=== PATIENT | male | born 1950 | race Two or more races ===

== ENCOUNTER 2023-06-28 16:06 | Emergency (ER) | payer OTHER ==
[~2023-06-28] VITALS: Ht 175.3 cm; Wt 113.4 kg
[2023-06-28] MEDS ORDERED: UROXATRAL10 MG (17:10)
[2023-06-28] MEDS ORDERED: AMLODIPINE-OLM1 EAC2 (17:10)
[2023-06-28] MEDS ORDERED: PRECOSE50 MG (17:10)
[2023-06-28] MEDS ORDERED: MONTELUKAST SODI4 M1 (17:11)
[2023-06-28] MEDS ORDERED: STIOLTO RESPIMAT4 GM (17:11)
[2023-06-28] MEDS ORDERED: XOPENEX HFA15 GM (17:11)
[2023-06-28] MEDS ORDERED: FINASTERIDE1 MG (17:12)
[2023-06-28] MEDS ORDERED: PEPCID AC10 MG (17:12)
[2023-06-28] MEDS ORDERED: ZYLOPRIM100 M1 (17:13)
[2023-06-28] MEDS ORDERED: CRESTOR10 MG (17:13)
[2023-06-28] MEDS ORDERED: NITROGLYCERIN0.4 MG (17:14)
[2023-06-28] MEDS ORDERED: ZESTRIL20 MG (17:14)
[2023-06-28] MEDS ORDERED: OXYBUTYNIN CHLO15 MG (17:14)
[2023-06-28] MEDS ORDERED: FARXIGA10 MG (17:15)
[2023-06-28] MEDS ORDERED: OMEGA-31000 MG (17:15)
[2023-06-28] MEDS ORDERED: MITIGARE0.6 MG (17:15)
[2023-06-28] MEDS ORDERED: ECOTRIN325 MG (17:16)
[2023-06-28] MEDS ORDERED: TIVORBEX20 MG (17:16)
[2023-06-28] MEDS ORDERED: ALLER-TEC10 MG (17:17)
[2023-06-28 18:41] LABS: HEMATOCRIT 49.2 % (39.0-48.0); HEMOGLOBIN 16.6 g/dL (13-16.00); MEAN CELL VOLUME 87.3 fL (80.0-100.00); MEAN CORPUSCULAR HEMOGLOBIN 29.4 pg (27.00-32.0); MEAN CORPUSCULAR HGB CONC 33.7 g/dl (32.0-36.0); PLATELET COUNT 249 K/uL (150-450); RED BLOOD COUNT 5.64 M/uL (4.00-6.00); RED CELL DISTRIBUTION WIDTH 14.2 % (11.5-14.5)
[2023-06-28 18:58] LABS: INR 1.01; PARTIAL THROMBOPLASTIN TIME 28.3 SECONDS (22.0-34.0); PROTHROMBIN TIME 10.6 SECONDS (9.0-11.5)
[2023-06-28 19:03] LABS: ALBUMIN 3.6 gm/dL (3.4-5.0); BILIRUBIN TOTAL 0.49 mg/dL (0.3-1.2); CALCIUM 9.1 mg/dL (8.5-10.1); CREATININE SERUM 1.07 mg/dL (0.70-1.30); GFR 67.93; GLOBULINA 4.6 G/DL (2.4-3.5); POTASSIUM 4.16 mEq/L (3.5-5.1); TOTAL PROTEIN 8.2 gm/dL (6.4-8.2)
[2023-06-28 19:16] LABS: URINE APPEARANCE Clear; URINE BILIRRUBIN Negative (NEGATIVE); URINE BLOOD Negative; URINE COLOR Yellow; URINE LEUKOCYTE Negative; URINE NITRATE Negative; URINE PROTEIN Negative (NEGATIVE); URINE UROBILINOGEN 0.2 E.U./dl
[2023-06-28 19:20] LABS: URINE BACTERIA 45.3 uL (0.0-1933); URINE EPITHELIAL CELLS 6.6 uL (0.0-38.8); URINE RBC 2.8 uL (0.0-20.8); URINE WBC 15.9 uL (0.0-23.2)
[2023-06-28 19:22] LABS: URINE GLUCOSE >=1000 MG/DL (NEGATIVE)
[2023-06-28 21:17] LABS: ABG PO2 89.1 mmHg (80-100); ABG pCO2 40.9 mmHg (35-45); BASE EXCESS 0.7 mmol/l; BICARBONATE 25.4 mmol/l (23-25); SaO2 96.9 %; Tco2 26.6 mmol/l
[2023-06-28 21:18] LABS: allen test SATISFACTORY; o2 21 %; puncture site RADIAL RIGHT
== END 2023-06-29 01:01 | disposition home or self-care (01) ==
LOC: ER 16:07
PROVIDERS: Emergency Medicine
DX: J45.909 Unspecified asthma, uncomplicated (principal); I10 Essential (primary) hypertension; E11.9 Type 2 diabetes mellitus without complications; Z79.84 Long term (current) use of oral hypoglycemic drugs; J84.10 Pulmonary fibrosis, unspecified; Z20.822 Contact with and (suspected) exposure to COVID-19; Z88.8 Allergy status to other drugs, medicaments and biological substances